=== PATIENT | female | born 1995 | race Caucasian/White ===

== ENCOUNTER → 2021-04-03 | Outpatient (CLI) | payer OTHER | END | disposition home or self-care (01) | LOC: CFH 09:58 | PROVIDERS: ATTEND Registered Nurse | DX: F07.81 Postconcussional syndrome (principal) | CPT/HCPCS: 72050 ==

== ENCOUNTER 2021-05-15 15:10 | Outpatient (CLI) | payer OTHER | END 2021-05-15 23:59 | disposition home or self-care (01) | LOC: CFH 15:10 | PROVIDERS: ATTEND Registered Nurse | DX: M54.2 Cervicalgia (principal) | CPT/HCPCS: 72125 ==